=== PATIENT | female | born 2000 | race Caucasian/White ===

== ENCOUNTER 2019-03-21 10:33 | Emergency (ER) | payer OTHER ==
[~2019-03-21] VITALS: Ht 154.9 cm; Wt 63.6 kg
--- NOTE | 2019-03-21 12:04 | REP ---
Right hand four views History: Trauma There is no acute fracture or dislocation. The joint spaces are normal in appearance. Impression: There is no acute fracture or dislocation. Electronically Signed by Gonzalo Strong MD 03/21/2019 11:56 A
--- NOTE | 2019-03-21 12:05 | REP ---
CT Head without contrast HISTORY: Trauma COMPARISON: None There is no intraparenchymal hemorrhage, acute infarct, mass or midline shift. The ventricular system is normal in appearance. There is no extra cerebral collection. There is no fracture. The visualized sinuses are clear. IMPRESSION: There is no intracranial lesion. Electronically Signed by Gonzalo Strong MD 03/21/2019 11:57 A
--- NOTE | 2019-03-21 12:09 | REP ---
CT cervical spine without contrast HISTORY: Trauma COMPARISON: None There is no acute fracture or subluxation. There is no disc bulge or herniation. The spinal canal and neural foramina are patent. The intervertebral discs and vertebral bodies are normal in height. IMPRESSION: There is no acute fracture or subluxation. Electronically Signed by Gonzalo Strong MD 03/21/2019 12:00 P
[2019-03-21] MEDS ORDERED: LIDOCAINE 2% W/EPIN INJ 20ML **PRES FREE As Ordered ONE (12:18)
[2019-03-21] MEDS ORDERED: LIDOCAINE 2% W/EPIN INJ 20ML **PRES FREE INJ ONE (12:30)
[2019-03-21] MEDS ORDERED: BACI500O8 TOP (12:59)
[2019-03-21 13:32] VITALS: BP 127/74
--- NOTE | 2019-03-21 14:25 | REP ---
RIGHT SHOULDER, THREE VIEWS: HISTORY: Trauma. There is no acute fracture or dislocation. The joint spaces are normal in appearance. IMPRESSION: There is no acute fracture or dislocation. Electronically Signed by Gonzalo Strong MD 03/21/2019 02:25 P
--- NOTE | 2019-03-21 14:26 | REP ---
RIGHT CLAVICLE, TWO VIEWS: HISTORY: Trauma. There is no acute fracture or dislocation. The joint spaces are normal in appearance. IMPRESSION: There is no acute fracture or dislocation. Electronically Signed by Gonzalo Strong MD 03/21/2019 02:42 P
== END 2019-03-21 13:51 | disposition home or self-care (01) ==
LOC: M ED 10:33 → EDBD 10:33 → M ED 13:51
DX: S01.81XA Laceration without foreign body of other part of head, initial encounter (principal); W22.8XXA Striking against or struck by other objects, initial encounter; Y92.018 Other place in single-family (private) house as the place of occurrence of the external cause